=== PATIENT | female | born 1985 | race Caucasian/White ===

== ENCOUNTER 2017-08-05 06:33 | Emergency (ER) | payer OTHER ==
[~2017-08-05] VITALS: Ht 165.1 cm; Wt 57.0 kg
[~2017-08-05 06:33] MED LIST: ACET50TA PO; CALC600T21 PO; COLA50CA3 PO; IBUP600T26 PO; META0.52 PO; PREN27TA3 PO; VITA10006 PO
[2017-08-05] MEDS ORDERED: MULT1TAB10 PO (06:42)
[2017-08-05] MEDS ORDERED: IBUPROFEN 600 MG TAB As Ordered ONE (08:07)
[2017-08-05] MEDS ORDERED: IBUPROFEN 600 MG TAB PO ONE (08:15)
--- NOTE | 2017-08-05 08:22 | REP ---
Left ankle series: Four views. History: Trauma. Findings: Four views of the left ankle demonstrate moderate soft tissue swelling about the lateral malleolus. Ankle mortise is intact. No fracture is seen. Impression: No fracture noted. Signed by Tino Pittman MD 08/05/2017 03:01 P
[2017-08-05 08:52] VITALS: BP 101/60
== END 2017-08-05 08:54 | disposition home or self-care (01) ==
LOC: M ED 06:33
DX: S93.402A Sprain of unspecified ligament of left ankle, initial encounter (principal); X50.9XXA Other and unspecified overexertion or strenuous movements or postures, initial encounter; Y92.410 Unspecified street and highway as the place of occurrence of the external cause; Y93.02 Activity, running; Y99.8 Other external cause status; Z79.899 Other long term (current) drug therapy

== ENCOUNTER → 2021-03-31 | Outpatient (CLI) | payer OTHER ==
[~2021-03-31] MED LIST changes: -ACET50TA PO; +MAPA500T17 PO; +MULT1TAB10 PO
[2021-03-31 08:21] LABS: HEMOGLOBIN 14.3 g/dl (12.0-15.5); MEAN CORPUSCULAR HEMOGLOBIN 30.1 pg (27.0-33.0); MEAN CORPUSCULAR VOLUME 88.4 fl (80.0-96.0); PLATELET COUNT, AUTOMATED 168 10^3/uL (150-450); RED BLOOD COUNT 4.75 10^6/uL (4.00-5.40); WHITE BLOOD COUNT 4.7 10^3/uL (4.0-10.0)
[2021-03-31 09:00] LABS: BLOOD UREA NITROGEN 11 MG/DL (7-18); CARBON DIOXIDE LEVEL 28 MEQ/L (21-32); CHLORIDE LEVEL 108 MEQ/L (98-107); CREATININE FOR GFR 0.76 MG/DL (0.55-1.30); GLOMERULAR FILTRATION RATE > 60.0 (>60); GLUCOSE, FASTING 88 MG/DL (70-100); POTASSIUM SERUM 4.2 MEQ/L (3.5-5.1); SODIUM LEVEL 141 MEQ/L (136-145)
[2021-03-31 09:01] LABS: ALT/SGPT 16 U/L (12-78); BILIRUBIN,TOTAL 0.8 MG/DL (0.2-1.0); CALCIUM LEVEL 8.7 MG/DL (8.5-10.1); CHOLESTEROL LEVEL 108 MG/DL (<200); CHOLESTEROL RISK RATIO 1.894 (<5); HDL CHOLESTEROL 57 MG/DL (>40); LDL CHOLESTEROL 42 MG/DL (<100); NON-HDL-C 51 MG/DL; TRIGLYCERIDES LEVEL 43 MG/DL (<150)
[2021-03-31 11:13] LABS: TOTAL 25(OH) VITAMIN D 60.1 NG/ML (30.0-100.0)
== END ==
LOC: M LAB 07:40
PROVIDERS: ATTEND Family Medicine
DX: E55.9 Vitamin D deficiency, unspecified (principal)

== ENCOUNTER → 2023-09-30 | Outpatient (CLI) | payer OTHER | LOC: M WHC 07:08 | PROVIDERS: ATTEND Obstetrics & Gynecology | DX: Z12.31 Encounter for screening mammogram for malignant neoplasm of breast (principal); N94.9 Unspecified condition associated with female genital organs and menstrual cycle ==

== ENCOUNTER → 2024-10-26 | Outpatient (CLI) | payer OTHER ==
[2024-10-26 08:09] LABS: BASO % 0.8 % (0.0-1.0); EOS # 0.2 10^3/uL (0.0-0.5); EOS % 3.3 % (0.0-3.0); HEMATOCRIT 43.4 % (36.0-47.0); HEMOGLOBIN 15.1 g/dl (12.0-15.5); LYMPH # 1.4 10^3/uL (1.5-5.0); MEAN CORPUSCULAR HEMOGLOBIN 30.4 pg (27.0-33.0); MEAN CORPUSCULAR HGB CONC 34.8 g/dl (32.0-36.5); MEAN CORPUSCULAR VOLUME 87.3 fl (80.0-96.0); MONO # 0.4 10^3/uL (0.0-0.8); MONO % 7.2 % (2.0-8.0); NEUTROPHILS # 3.1 10^3/uL (1.5-8.5); NEUTROPHILS % 60.3 % (36.0-66.0); PLATELET COUNT, AUTOMATED 155 10^3/uL (150-450); RED BLOOD COUNT 4.97 10^6/uL (4.00-5.40); WHITE BLOOD COUNT 5.2 10^3/uL (4.0-10.0)
[2024-10-26 08:41] LABS: IRON (FE) 178 UG/DL (50-170); PERCENT SATURATION 63.6 % (13.2-45.0); TOTAL IRON BINDING CAPACITY 280 UG/DL (250-425)
[2024-10-26 08:42] LABS: ALKALINE PHOSPHATASE 34 U/L (35-104); ALT/SGPT 16 U/L (7.0-40); AST/SGOT 14 U/L (<34); BILIRUBIN,TOTAL 0.8 MG/DL (0.3-1.2); BLOOD UREA NITROGEN 15 MG/DL (9-23); CALCIUM LEVEL 9.4 MG/DL (8.5-10.1); CARBON DIOXIDE LEVEL 27 MMOL/L (20-31); CHLORIDE LEVEL 106 MMOL/L (98-107); CHOLESTEROL LEVEL 137 MG/DL (<200); CHOLESTEROL RISK RATIO 2.04 (<5); CREATININE FOR GFR 0.77 MG/DL (0.55-1.30); FREE T4 1.16 NG/DL (0.89-1.76); GLOMERULAR FILTRATION RATE > 60.0 (>58); GLUCOSE, FASTING 97 MG/DL (60-100); LDL CHOLESTEROL 59.2 MG/DL (<100); POTASSIUM SERUM 4.3 MMOL/L (3.5-5.1); SODIUM LEVEL 140 MMOL/L (136-145); THYROID STIMULATING HORMONE 2.226 uIU/ML (0.55-4.78); TOTAL PROTEIN 7.1 G/DL (5.7-8.2); TRIGLYCERIDES LEVEL 54 MG/DL (<150)
[2024-10-26 08:43] LABS: FERRITIN 66.4 NG/ML (7.3-270.7); VITAMIN B12 LEVEL 1106 PG/ML (211-911)
== END ==
LOC: M LAB 07:22
PROVIDERS: ATTEND Family Medicine
DX: E61.1 Iron deficiency (principal); R53.83 Other fatigue